=== PATIENT | male | born 1965 | race Caucasian/White ===

== ENCOUNTER → 2018-08-01 | Outpatient (CLI) | payer OTHER ==
--- NOTE | 2018-08-01 12:30 | PCVCIMAG ---
APPROVED REPORT Study performed: 08/01/2018 11:21:47 Exam: Stress Echocardiogram Indication: Hyperlipidemia, Hypertension, Fatigue Patient Location: Echo lab Stress Nurse: Katherine Angulo RN Status: routine Ht: 6 ft 3 in HR: 67 bpm BP: 100/70 mmHg Rhythm: NSR Medical History Medical History: Biscupid Aortic Valve, Ascending Aortic Aneurysm Procedure The patient underwent an Exercise Stress Test using the Nicolas Protocol. Blood pressure, heart rate, and EKG were monitored. An Echocardiogram was performed by golf technician in four stages in quad fashion. At peak stress, four selected images were obtained and placed side by side with resting images for comparison. Stress Test Details Stress Test: Exercise stress testing was performed using a Nicolas protocol. HR Resting HR: 67 bpmMax Heart Rate (APMHR): 165 bpm Max HR Achieved: 137 bpmTarget HR (85% APMHR): 140 bpm % of APMHR: 83 Recovery HR: 86 bpm HR response to stress: Normal HR response to stress BP Resting BP: 100/70 mmHg Max BP: 146/72 mmHg Recovery BP: 146/72 mmHg BP response to stress: Normal blood pressure response to stress. ECG Resting ECG: Sinus Rhythm Stress ECG: Sinus Rhythm ST Change: Upsloping ST depression Maximum ST Deviation: 0.5 mm Arrhythmia: APC's Recovery ECG: Sinus Rhythm Recovery ST Change: Normal Recovery ST Deviation: 0 mm Recovery Arrhythmia: None Clinical Reason for Termination: Dyspnea, Leg Pain Exercise duration: 10 min 47 sec Highest Stage Achieved: Stage 3: 3.4 mph at 14% grade. Exercise capacity: 13.40 METs Overall Exercise Capacity for Age: Good Angina Score: None Stress ECG Conclusion Gomez Treadmill Score is 7.5 which is Low risk. Pre-Stress Echo The resting Echocardiogram showed normal left ventricular contractility with an estimated Ejection Fraction of about 55-60%. Normal wall motion in all segments on baseline images. Post-Stress Echo The stress Echocardiogram showed normal left ventricular contractility with an estimated Ejection Fraction of about 60-65%. Normal augmentation of wall motion in all segments on post stress images. Clinical No clinical or ECG evidence for ischemia. Conclusion Clinical Response: Non-ischemic Exercise Capacity: Average Stress ECG Response: Non-ischemic Stress Echo Images: Non-ischemic The left ventricle is normal in size and wall thickness in both the rest and stress images. Ascending aorta measures up to 4.6cm. [place], mildly sclerotic aortic valve Normal stress echocardiogram with maximal exercise stress. Other Information Study Quality: Adequate <Conclusion> The left ventricle is normal in size and wall thickness in both the rest and stress images. Ascending aorta measures up to 4.6cm. [place], mildly sclerotic aortic valve Normal stress echocardiogram with maximal exercise stress.
== END | disposition home or self-care (01) ==
LOC: PCVCIMAG 08:00
PROVIDERS: ATTEND Internal Medicine
DX: I10 Essential (primary) hypertension (principal); E78.5 Hyperlipidemia, unspecified; R53.83 Other fatigue; G47.33 Obstructive sleep apnea (adult) (pediatric); I71.2 Thoracic aortic aneurysm, without rupture; E78.1 Pure hyperglyceridemia
CPT/HCPCS: 93325; 93351